=== PATIENT | male | born 1945 | race Caucasian/White ===

== ENCOUNTER 2024-01-15 14:24 | Inpatient (IN) ==
[2024-01-15] MEDS ORDERED: IOPAMIDOL 100 ML BOTTLE IV ONE (14:25)
[2024-01-15] MEDS: IPRATROPIUM/ALBUTEROL 3 ML AMPUL.NEB NEB ONE (15:49)
[2024-01-15 15:57] LABS: Basophils # (Auto) 0.01 K/mcL (0.00-0.30); Basophils % (Auto) 0.1 % (0.0-2.0); Eosinophils # (Auto) 0.12 K/mcL (0.00-0.70); Eosinophils % (Auto) 1.7 % (0.0-7.0); Hematocrit 30.1 % (40.1-51.0); Hemoglobin 9.6 g/dL (13.7-17.5); Lymphocytes # (Auto) 0.46 K/mcL (1.50-4.80); Lymphocytes % (Auto) 6.4 % (15.5-49.0); Mean Cell Volume 106.7 fL (80.0-100.0); Mean Corpuscular HGB Conc 31.9 g/dL (31.0-36.0); Mean Platelet Volume 9.2 fL (8.8-12.5); Monocytes # (Auto) 0.68 K/mcL (0.10-0.90); Monocytes % (Auto) 9.5 % (1.0-12.0); Platelet Count 212 K/mcL (140-440); RBC 2.82 M/mcL (4.63-6.08); Red Cell Distribution Width 13.2 % (11.5-14.5); WBC 7.2 K/mcL (4.5-11.0)
[2024-01-15] MEDS: cefTRIAXone 1 GM VIAL IV ONE (16:15)
[2024-01-15] MEDS: methylPREDNISolone SOD SUCC 125 MG/2 ML VIAL IV ONE (16:15)
[2024-01-15 16:21] LABS: ALT/SGPT 23 U/L (<40); AST/SGOT 29 U/L (<40); Albumin 3.5 gm/dL (3.2-5.2); Alkaline Phosphatase 94 U/L (39-117); Bilirubin,Total 0.2 mg/dL (0.1-1.0); Blood Urea Nitrogen 27 mg/dL (8-23); Calcium 9.3 mg/dL (8.6-10.4); Carbon Dioxide 25 mmol/L (22-30); Chloride 97 mmol/L (96-108); Globulin 3.6 gm/dL (2.2-3.7); Glomerular Filtration Rate 57; Glucose 116 mg/dL (70-105)
[2024-01-15] MEDS: AZITHROMYCIN 500 MG in DEXTROSE 5% IN WATER 250 ML IV ONE (16:24)
[2024-01-15] MEDS: LEVALBUTEROL 1.25 MG/3 ML AMPUL.NEB NEB ONE (17:11)
[2024-01-15] MEDS: ACETAMINOPHEN 500 MG TABLET PO ONE (17:42)
[2024-01-15] MEDS: 0.9 % SODIUM CHLORIDE 1,000 ML IV ONE (18:00)
[2024-01-15] MEDS: guaiFENesin 600 MG TAB.SR.12H PO SCH (19:00)
[2024-01-15] MEDS ORDERED: BISACODYL 10 MG SUPP.RECT PR PRN (20:37)
[2024-01-15] MEDS ORDERED: oxyCODONE/APAP 5/325MG TABLET PO PRN (20:37)
[2024-01-15] MEDS ORDERED: ONDANSETRON 4 MG/2 ML VIAL IV PRN (20:37)
[2024-01-15] MEDS: guaiFENesin 600 MG TAB.SR.12H PO ONE (21:01)
[2024-01-15] MEDS: BUDESONIDE 0.5 MG/2 ML AMPUL.NEB NEB SCH (21:06)
[2024-01-15] MEDS: IPRATROPIUM/ALBUTEROL 3 ML AMPUL.NEB NEB SCH (21:06)
[2024-01-15] MEDS: BENZONATATE 100 MG CAPSULE PO PRN (21:08)
[2024-01-15] MEDS: BENZONATATE 100 MG CAPSULE PO SCH (21:09)
[2024-01-15] MEDS: FAMOTIDINE 20 MG TABLET PO SCH (21:10)
[2024-01-15] MEDS: guaiFENesin/CODEINE 10 ML UDC PO SCH (21:10)
[2024-01-15 22:55] LABS: Appearance,Urine Clear (Clear); Bilirubin,Urine Negative (Negative); Color,Urine Yellow; Culture Indicated,Urine No; Glucose,Urine (UA) Negative (Negative); Ketones,Urine Negative (Negative); Leukocyte Esterase,Urine Negative /uL (Negative); Nitrate,Urine Negative (Negative); Protein,Urine Negative (Negative); Specific Gravity,Urine <= 1.005 (1.000-1.035); Urine Blood Negative ery/mcL (Negative); Urobilinogen,Urine Normal
[2024-01-15] MEDS: 0.9 % SODIUM CHLORIDE 10 ML SYRINGE IV SCH (23:31)
[2024-01-15] MEDS: methylPREDNISolone SOD SUCC 40 MG/ML VIAL IV SCH (23:31)
[2024-01-16 07:11] LABS: ALT/SGPT 22 U/L (<40); AST/SGOT 24 U/L (<40); Albumin 3.3 gm/dL (3.2-5.2); Albumin/Globulin Ratio 0.9 (1.0-2.3); Alkaline Phosphatase 93 U/L (39-117); Bilirubin,Total < 0.2 mg/dL (0.1-1.0); Blood Urea Nitrogen 27 mg/dL (8-23); Calcium 9.5 mg/dL (8.6-10.4); Carbon Dioxide 22 mmol/L (22-30); Chloride 99 mmol/L (96-108); Globulin 3.6 gm/dL (2.2-3.7); Glomerular Filtration Rate 57; Glucose 237 mg/dL (70-105)
[2024-01-16 07:12] LABS: Basophils # (Auto) 0.01 K/mcL (0.00-0.30); Basophils % (Auto) 0.1 % (0.0-2.0); Eosinophils # (Auto) 0 K/mcL (0.00-0.70); Eosinophils % (Auto) 0 % (0.0-7.0); Hematocrit 27.8 % (40.1-51.0); Hemoglobin 8.9 g/dL (13.7-17.5); Lymphocytes # (Auto) 0.26 K/mcL (1.50-4.80); Lymphocytes % (Auto) 3.6 % (15.5-49.0); Mean Cell Volume 106.5 fL (80.0-100.0); Mean Platelet Volume 9.1 fL (8.8-12.5); Monocytes # (Auto) 0.12 K/mcL (0.10-0.90); Monocytes % (Auto) 1.7 % (1.0-12.0); Neutrophils % (Auto) 94.5 % (38.0-78.0); Platelet Count 209 K/mcL (140-440); RBC 2.61 M/mcL (4.63-6.08); Red Cell Distribution Width 13.2 % (11.5-14.5); WBC 7.1 K/mcL (4.5-11.0)
[2024-01-16] MEDS: guaiFENesin 600 MG TAB.SR.12H PO SCH (09:59)
[2024-01-16] MEDS: ENOXAPARIN 30 MG/0.3 ML SYRINGE SQ SCH (09:59)
[2024-01-16] MEDS: AZITHROMYCIN 500 MG in DEXTROSE 5% IN WATER 250 ML IV SCH (11:05)
[2024-01-16] MEDS: cefTRIAXone 2 GM in DEXTROSE 5% IN WATER 50 ML IV SCH (13:38)
[2024-01-17 07:06] LABS: Basophils # (Auto) 0 K/mcL (0.00-0.30); Basophils % (Auto) 0 % (0.0-2.0); Eosinophils # (Auto) 0 K/mcL (0.00-0.70); Eosinophils % (Auto) 0 % (0.0-7.0); Hematocrit 28.9 % (40.1-51.0); Hemoglobin 9.3 g/dL (13.7-17.5); Lymphocytes % (Auto) 2.6 % (15.5-49.0); Mean Cell Volume 105.9 fL (80.0-100.0); Mean Corpuscular HGB Conc 32.2 g/dL (31.0-36.0); Mean Platelet Volume 9.5 fL (8.8-12.5); Monocytes # (Auto) 0.55 K/mcL (0.10-0.90); Monocytes % (Auto) 3.6 % (1.0-12.0); Neutrophils % (Auto) 92.8 % (38.0-78.0); Platelet Count 255 K/mcL (140-440); RBC 2.73 M/mcL (4.63-6.08); Red Cell Distribution Width 13.1 % (11.5-14.5); WBC 15.4 K/mcL (4.5-11.0)
[2024-01-17 07:39] LABS: ALT/SGPT 31 U/L (<40); AST/SGOT 33 U/L (<40); Albumin 3.6 gm/dL (3.2-5.2); Alkaline Phosphatase 123 U/L (39-117); Bilirubin,Total < 0.2 mg/dL (0.1-1.0); Blood Urea Nitrogen 35 mg/dL (8-23); Calcium 9.9 mg/dL (8.6-10.4); Carbon Dioxide 24 mmol/L (22-30); Chloride 101 mmol/L (96-108); Globulin 3.7 gm/dL (2.2-3.7); Glomerular Filtration Rate 52; Glucose 156 mg/dL (70-105)
[2024-01-17] MEDS: FOLIC ACID 1 MG TABLET PO SCH (09:30)
[2024-01-17] MEDS: APIXABAN 5 MG TABLET PO SCH (10:15)
[2024-01-17] MEDS: methylPREDNISolone SOD SUCC 40 MG/ML VIAL IV SCH (15:33)
[2024-01-17] MEDS: OLANZapine 5 MG TABLET PO SCH (20:29)
[2024-01-17] MEDS ORDERED: methylPREDNISolone SOD SUCC 40 MG/ML VIAL IV SCH (22:00)
[2024-01-18 06:47] LABS: Basophils # (Auto) 0.01 K/mcL (0.00-0.30); Basophils % (Auto) 0.1 % (0.0-2.0); Eosinophils # (Auto) 0 K/mcL (0.00-0.70); Eosinophils % (Auto) 0 % (0.0-7.0); Hematocrit 27.3 % (40.1-51.0); Hemoglobin 8.7 g/dL (13.7-17.5); Lymphocytes # (Auto) 0.39 K/mcL (1.50-4.80); Lymphocytes % (Auto) 3.2 % (15.5-49.0); Mean Cell Volume 106.2 fL (80.0-100.0); Mean Corpuscular HGB Conc 31.9 g/dL (31.0-36.0); Mean Platelet Volume 9.5 fL (8.8-12.5); Monocytes # (Auto) 0.49 K/mcL (0.10-0.90); Neutrophils % (Auto) 91.3 % (38.0-78.0); Platelet Count 249 K/mcL (140-440); RBC 2.57 M/mcL (4.63-6.08); Red Cell Distribution Width 13.4 % (11.5-14.5); WBC 12.2 K/mcL (4.5-11.0)
[2024-01-18 07:08] LABS: ALT/SGPT 34 U/L (<40); AST/SGOT 27 U/L (<40); Albumin 3.3 gm/dL (3.2-5.2); Albumin/Globulin Ratio 1.1 (1.0-2.3); Alkaline Phosphatase 87 U/L (39-117); Bilirubin,Direct < 0.2 mg/dL (0-0.3); Bilirubin,Total < 0.2 mg/dL (0.1-1.0); Blood Urea Nitrogen 40 mg/dL (8-23); Calcium 9.6 mg/dL (8.6-10.4); Carbon Dioxide 26 mmol/L (22-30); Chloride 106 mmol/L (96-108); Globulin 3.1 gm/dL (2.2-3.7); Glomerular Filtration Rate 64; Glucose 137 mg/dL (70-105); Lactate Dehydrogenase 132 U/L (135-225); Phosphorous 3.1 mg/dL (2.5-4.5); Triglycerides 69 mg/dL (<150); Uric Acid 8.6 mg/dL (2.5-8.0)
[2024-01-18] MEDS: guaiFENesin/CODEINE 10 ML UDC PO PRN (07:46)
[2024-01-18] MEDS ORDERED: IPRATROPIUM/ALBUTEROL 3 ML AMPUL.NEB NEB PRN (07:57)
== END 2024-01-18 13:03 | disposition home or self-care (01) | DRG 871 ==
LOC: ED 14:24 → MEDSUR 20:27
PROVIDERS: ADMIT Internal Medicine; ATTEND Internal Medicine